=== PATIENT | female | born 1960 | race Caucasian/White ===

== ENCOUNTER 2018-11-26 07:53 | Outpatient (CLI) | payer BC ==
--- NOTE | 2018-11-28 15:53 | MMO ---
Bilateral MAMMO Bilat Screen [facility]. CLINICAL HISTORY: Patient is 57 years old and is seen for screening. The patient has no family history of breast cancer. The patient has no personal history of cancer. VIEWS: The views performed were: bilateral craniocaudal with tomosynthesis and bilateral mediolateral oblique with tomosynthesis. FILMS COMPARED: The present examination has been compared to a prior imaging study performed at [facility] on 04/07/2017. MAMMOGRAM FINDINGS: There are scattered fibroglandular densities. There are no suspicious masses, suspicious calcifications, or new areas of architectural distortion. IMPRESSION: THERE IS NO MAMMOGRAPHIC EVIDENCE OF MALIGNANCY. A ROUTINE FOLLOW-UP MAMMOGRAM IN 1 YEAR IS RECOMMENDED. THE RESULTS OF THIS EXAM WERE SENT TO THE PATIENT. ACR BI-RADS Category 1 - Negative MAMMOGRAPHY NOTE: 1. A negative mammogram report should not delay a biopsy if a dominant of clinically suspicious mass is present. 2. Approximately 10% to 15% of breast cancers are not detected by mammography. 3. Adenosis and dense breasts may obscure an underlying neoplasm. Reported by: JOSEFA CARRERA MD Electonically Signed: [id number]
== END 2018-11-26 07:54 | disposition home or self-care (01) ==
LOC: BICMAMMO 07:53
PROVIDERS: ATTEND Family Medicine
DX: Z12.31 Encounter for screening mammogram for malignant neoplasm of breast (principal)
CPT/HCPCS: 77063; 77067

== ENCOUNTER 2020-04-20 17:41 | Outpatient (CLI) | payer BC ==
--- NOTE | 2020-04-20 18:08 | RAD ---
Exam:3 views left HISTORY: Pain. Symptoms x6 mom COMPARISON: None FINDINGS: No joint effusion. Preserved patellofemoral and lateral joint spaces. Mild degenerative catherine nge of the medial compartment. No malalignment or fracture. IMPRESSION: No significant degenerative change or fracture.
--- NOTE | 2020-04-20 18:09 | RAD ---
XR Ankle Lt 3 View STANDARD INDICATION: History of left ankle pain COMPARISON: None. FINDINGS: Bones: There is moderate tibiotalar and severe subtalar osteoarthrosis. There is moderate enthesopath ic change off the plantar calcaneus. There is healed deformity involving the base of the fifth metatarsal. There is a prominent ossific bodies seen adjacent to the distal aspect of the fibula. Ankle mortise: Moderate tibiotalar osteoarthrosis Talar Dome: Intact. Subtalar joint: Severe subtalar osteoarthrosis Visualized hindfoot: Normal. Periarticular soft tissues: There is soft tissue swelling surrounding the left ankle. IMPRESSION: 1. No acute fracture or subluxation demonstrated. 2. Moderate tibiotalar and severe subtalar osteoarthrosis. Healed deformity involving the base of the fifth metatarsal. 3. Focus of heterotopic ossification seen distal to the lateral malleolus likely reflect sequela of r emote injury.
== END 2020-04-20 17:42 | disposition home or self-care (01) ==
LOC: SCSRAD 17:41
PROVIDERS: ATTEND Family Medicine
DX: M25.572 Pain in left ankle and joints of left foot (principal); M25.562 Pain in left knee; M19.072 Primary osteoarthritis, left ankle and foot
CPT/HCPCS: 80053; 80061; 81003; 83036; 84439; 84443; 85025

== ENCOUNTER 2020-04-22 12:51 | Outpatient (CLI) | payer BC ==
--- NOTE | 2020-04-22 13:40 | MMO ---
Bilateral MAMMO Bilat Screen [facility]. CLINICAL HISTORY: Patient is 59 years old and is seen for screening. The patient has no family history of breast cancer. The patient has no personal history of cancer. VIEWS: The views performed were: bilateral craniocaudal with tomosynthesis and bilateral mediolateral oblique with tomosynthesis. FILMS COMPARED: The present examination has been compared to prior imaging studies performed at [facility] on 04/07/2017, and at [facility] on 11/26/2018. This study has been interpreted with the assistance of computer-aided detection. MAMMOGRAM FINDINGS: There are scattered fibroglandular densities. There are vascular calcifications seen in both breasts. There are no suspicious masses, suspicious calcifications, or new areas of architectural distortion. IMPRESSION: A ROUTINE FOLLOW-UP MAMMOGRAM IN 1 YEAR IS RECOMMENDED. THE RESULTS OF THIS EXAM WERE SENT TO THE PATIENT. ACR BI-RADS Category 2 - Benign finding MAMMOGRAPHY NOTE: 1. A negative mammogram report should not delay a biopsy if a dominant of clinically suspicious mass is present. 2. Approximately 10% to 15% of breast cancers are not detected by mammography. 3. Adenosis and dense breasts may obscure an underlying neoplasm. Reported by: ZACK XIE MD Electonically Signed: [id number]
== END 2020-04-22 12:52 | disposition home or self-care (01) ==
LOC: BICMAMMO 12:51
PROVIDERS: ATTEND Family Medicine
DX: Z12.31 Encounter for screening mammogram for malignant neoplasm of breast (principal)
CPT/HCPCS: 77063; 77067